=== PATIENT | male | born 1970 | race Hispanic/Latino ===

== ENCOUNTER 2016-12-14 00:30 | Emergency (ER) | payer MEDICAID ==
[2016-12-14 00:30] VITALS: BMI 39.9
[2016-12-14 00:49] VITALS: RESP 20
--- NOTE | 2016-12-14 01:12 | C.PDOC ---
History Of Present Illness 46 year old male complains of pain to left leg since yesterday. Patient reports pain to calf area, felt a pull when walking down the stairs. He continued to have pain today and came in for evaluation. He denies taking any pain medicine. Denies any chest pain, SOB, numbness or weakness. Time Seen by Provider: 12/14/16 00:56 Chief Complaint (Nursing): Upper Extremity Problem/Injury History Per: Patient History/Exam Limitations: no limitations Onset/Duration Of Symptoms: Days Current Symptoms Are (Timing): Still Present Severity: Mild Recent travel outside of the [place]: No Additional History Per: Patient Past Medical History Reviewed: Historical Data, Nursing Documentation, Vital Signs Vital Signs: Last Vital Signs Temp 98.2 F 12/14/16 03:05 Pulse 82 12/14/16 03:05 Resp 20 12/14/16 03:05 BP 132/75 12/14/16 03:05 Pulse Ox 99 12/14/16 03:05 - Medical History PMH: Back Problems - [facility] Procedures APPLICATION OF SPLINT (02/26/15) Family History: States: Unknown Family Hx - Social History Hx Alcohol Use: No Hx Substance Use: No - Immunization History Hx Tetanus Toxoid Vaccination: No Hx Influenza Vaccination: No Hx Pneumococcal Vaccination: No Review Of Systems Except As Marked, All Systems Reviewed And Found Negative. Cardiovascular: Negative for: Chest Pain, Palpitations Respiratory: Negative for: Shortness of Breath Gastrointestinal: Negative for: Vomiting, Abdominal Pain, Diarrhea Musculoskeletal: Positive for: Leg Pain (Left leg pain) Neurological: Negative for: Weakness, Numbness, Headache, Dizziness Physical Exam - Physical Exam Appears: Non-toxic, No Acute Distress Skin: Warm, Dry Head: Atraumatic, Normacephalic Eye(s): bilateral: Normal Inspection, EOMI Neck: Normal ROM Chest: Symmetrical Cardiovascular: Rhythm Regular Respiratory: Normal Breath Sounds, No Rales, No Rhonchi, No Wheezing Gastrointestinal/Abdominal: Normal Exam (obese), Soft Extremity: No Pedal Edema, No Swelling, Other (Left leg: calf tenderness, no swelling, no palpable cord, negative Raven's sign ) Pulses: Left Dorsalis Pedis: Normal, Right Dorsalis Pedis: Normal Neurological/Psych: Oriented x3, Normal Speech, Other (No focal deficit) Gait: With Assistance (uses cane) ED Course And Treatment - Laboratory Results Result Diagrams: 12/14/16 01:24 12/14/16 01:24 Lab Interpretation: Abnormal O2 Sat by Pulse Oximetry: 98 (RA) Pulse Ox Interpretation: Normal Medical Decision Making Medical Decision Making: Impression: 46 y.o male with left calf pain, suspect muscle pull vs DVT. Vascular is not available at this time, will order Dimer Plan: * Labs * Morphine Progress: Labs reviewed and Dimer was elevated. All other labs reviewed Patient re-evaluated and reports pain has improved, denies any SOB or chest pain. I discussed and explained lab result. Will treat with Lovenox. Instruct patient to return tomorrow morning for venous doppler study. Patient verbalized understanding. Disposition Counseled Patient/Family Regarding: Studies Performed, Diagnosis, Need For Followup - Disposition Referrals: Bernadette Guzman MD [Medical Doctor] - Disposition: HOME/ ROUTINE Disposition Time: 02:32 Condition: STABLE Additional Instructions: Your lab shows elevated dimer. You must return tomorrow morning for venous doppler Instructions: Leg Pain (ED) - POA Present On Arrival: None - Clinical Impression Clinical Impression: D-dimer, elevated, Pain of left calf - Scribe Statement The provider has reviewed the documentation as recorded by the Scribe Thai gottlieb All medical record entries made by the Scribe were at my direction and personally dictated by me. I have reviewed the chart and agree that the record accurately reflects my personal performance of the history, physical exam, medical decision making, and the department course for this patient. I have also personally directed, reviewed, and agree with the discharge instructions and disposition.
[2016-12-14 01:28] LABS: BASO % 0.4 % (0.0-2.0); EOS # 0.1 K/uL (0.0-0.7); EOS % 1.6 % (0.0-4.0); HEMATOCRIT 44.2 % (35.0-51.0); LYMPH # 2.1 K/uL (1.0-4.3); LYMPH % 35.7 % (20.0-40.0); MEAN CELL VOLUME 72.8 fL (80.0-94.0); MEAN CORPUSCULAR HGB CONC 31.5 g/dL (33.0-37.0); MEAN PLATELET VOLUME 8.5 fL (7.2-11.7); MONO # 0.5 K/uL (0.0-0.8); MONO % 7.9 % (0.0-10.0); RED CELL DISTRIBUTION WIDTH 15.4 % (11.5-14.5)
[2016-12-14 01:36] LABS: CHLORIDE 101 mmol/L (98-107)
[2016-12-14 01:37] LABS: POTASSIUM 3.7 mmol/L (3.6-5.2); SODIUM 138 mmol/L (132-148)
[2016-12-14 01:39] LABS: ALB/GLOB RATIO 1.3 (1.0-2.1); ALKALINE PHOSPHATASE 66 U/L (38-126); ALT/SGPT 35 U/L (21-72); AST/SGOT 41 U/L (17-59); BILIRUBIN,TOTAL 0.7 mg/dL (0.2-1.3); BLOOD UREA NITROGEN 18 mg/dL (9-20); CARBON DIOXIDE 27 mmol/L (22-30); GFR AFRICAN-AMERICAN > 60; GLUCOSE,RANDOM 105 mg/dL (75-110); TOTAL PROTEIN 7.7 g/dL (6.3-8.3)
[2016-12-14 01:40] LABS: CALCIUM 9.1 mg/dl (8.6-10.4)
[2016-12-14] MEDS ORDERED: Enoxaparin 40 mg Syringe SC STA (02:29)
[2016-12-14 03:09] VITALS: BP 132/75; PULSE 82; TEMP 98.2
[2016-12-14 03:46] VITALS: O2SAT 98
== END 2016-12-14 03:09 | disposition home or self-care (01) ==
LOC: C.ER 00:30
DX: M79.662 Pain in left lower leg (principal); R79.89 Other specified abnormal findings of blood chemistry
CPT/HCPCS: 80053; 83880; 85025; 85378; 85610; 85730; 96372; 96374; 99284; J1650; J2270